=== PATIENT | female | born 1955 | race Caucasian/White ===

== ENCOUNTER 2017-07-17 13:11 | Emergency (ER) | payer OTHER ==
[~2017-07-17] VITALS: Ht 162.6 cm; Wt 96.8 kg
[~2017-07-17 13:11] MED LIST: ABILIFY5 MG PO; BETIMOL 0.100 DROP/5 BOTH EYES; CENTRUM SILVER1 EACH PO; CENTRUM ULTRA1 EAC1 PO; CLONAZEPAM1 MG PO; CYMBALTA30 MG PO; CYMBALTA60 MG PO; DESYREL100 MG PO; FISH OIL CONC1 EACH PO; GLUCOPHAGE500 M1 PO; HUMALOG100 UNIT/2 SC; KlonoPIN PO; LEVEMIR FL100 UNITS/ PO; LEVOTHROID,S0.112 MG PO; LEVOTHYROXINE88 MCG PO; LISINOPRIL10 MG PO; LISINOPRIL20 MG PO; NOVOLOG PE100 UNITS/ SC; OXYCONTIN10 MG PO; OXYCONTIN30 MG PO; PANTOPRAZOLE SO40 MG PO; PERCOCET 5/31 TABLET PO; SEROQUEL50 MG PO; SIMVASTATIN; SIMVASTATIN40 MG PO; TRAZODONE HCL50 MG PO; VITAMIN B-121000 MC2 PO; VITAMIN B-650 MG PO; WELCHOL625 MG PO; vitamin b 12 PO
[2017-07-17 15:06] LABS: HEMATOCRIT 33.4 % (36.0-46.0); MCH 30.6 PG (29.0-34.0); MCHC 34.1 G/DL (30.0-36.0); MCV 89.5 FL (83-99); MEAN PLAT.VOLUME 9.4 uM^3 (9.5-12.4); PLATELET COUNT 258 K/uL (156-360); RBC DIS.WIDTH-CV 14.1 % (11.8-14.6); RBC DIS.WIDTH-SD 46.1 % (39-53); RED BLOOD COUNT 3.73 M/uL (3.80-5.20); WHITE BLOOD COUNT 8.4 K/uL (4.1-10.2)
[2017-07-17 15:19] LABS: CHLORIDE 107 mEq/L (99-109); POTASSIUM 3.6 mEq/L (3.7-5.4); SODIUM 143 mEq/L (136-147)
[2017-07-17 15:21] LABS: GLUCOSE 83 mg/dL (70-99)
[2017-07-17 15:22] LABS: ANION GAP 11 MEQ/L (2-14)
[2017-07-17 15:25] LABS: GFR ESTIMATE (CALCULATED) > 59 mL/min/; UREA NITROGEN (BUN) 18 mg/dL (9-23)
[2017-07-17 15:31] LABS: TROP-I INTERPRETATION NEGATIVE; TROPONIN-I < 0.01 ng/mL (0.0-0.30)
[2017-07-17 17:16] LABS: TROP-I INTERPRETATION NEGATIVE; TROPONIN-I < 0.01 ng/mL (0.0-0.30)
[2017-07-17 18:30] VITALS: BP 159/89
== END 2017-07-17 18:37 | disposition home or self-care (01) ==
LOC: EME 13:11
PROVIDERS: Emergency Medicine
DX: M79.602 Pain in left arm (principal); E11.9 Type 2 diabetes mellitus without complications; I10 Essential (primary) hypertension; E03.9 Hypothyroidism, unspecified; F41.9 Anxiety disorder, unspecified; F32.9 Major depressive disorder, single episode, unspecified; Z98.1 Arthrodesis status; Z87.891 Personal history of nicotine dependence; Z79.4 Long term (current) use of insulin; Z88.0 Allergy status to penicillin; Z88.2 Allergy status to sulfonamides; Z88.8 Allergy status to other drugs, medicaments and biological substances
CPT/HCPCS: 71020; 80048; 84484; 85027; 99281; 99285